=== PATIENT | male | born 1940 | race Caucasian/White ===

== ENCOUNTER 2017-01-24 15:55 | Emergency (ER) | payer MEDICARE ==
[2017-01-24] MEDS ORDERED: 0.9 % SODIUM CHLORIDE 1,000 ML IV ONE ×2 (16:13→16:28)
[2017-01-24] MEDS ORDERED: DILTIAZEM HCL 25 MG/ 5ML VIAL ONE (16:14)
[2017-01-24] MEDS: 0.9 % SODIUM CHLORIDE 1,000 ML IV ONE ×3 (16:20→17:10)
[2017-01-24] MEDS: DILTIAZEM HCL 25 MG/ 5ML VIAL IVP ONE (16:20)
[2017-01-24] MEDS ORDERED: DILTIAZEM HCL 125 MG in 0.9 % SODIUM CHLORIDE 100 ML IV STA (16:33)
[2017-01-24 16:49] LABS: BASOPHILS % 0.4 (0.0-1.5); EOSINOPHILS % 0.2 % (0.0-6.8); MEAN CORPUSCULAR HEMOGLOBIN 29.7 pg (28.0-34.0); MONOCYTES % 5.9 % (0.0-11.0); NEUTROPHILS # 11.9 # k/uL (1.4-7.7)
[2017-01-24] MEDS: DILTIAZEM HCL 125 MG in 0.9 % SODIUM CHLORIDE 100 ML IV STA (16:50)
[2017-01-24 16:58] LABS: eGFR (African) 42; eGFR (Non-African) 35
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
[2017-01-24 17:47] VITALS: BP 80/54
--- NOTE | 2017-01-24 18:57 | Diagnostic Imaging Report ---
JAZZY FERREIRA~ [facility] [address] [facility] [address] [place] [address]. [id number] ~ ~ ~ ~ Report Submission Date: Jan 24, 2017 4:57:04 PM CDT Patient ~ Study Name: KAREN BRITTON ~ Date: Jan 24, 2017 4:37:05 PM CDT ~ Modality Type: CR Gender: M ~ Description: CHEST : 42 ~ Institution: [facility] Physician: JAZZY FERREIRA ~ ~ ~ ~ HISTORY: 76-year-old male with atrial fibrillation and rapid ventricular response. COMPARISON: None available. TECHNIQUE: Single portable AP view of the chest was performed. FINDINGS: No pneumothorax, consolidative infiltrates, or pulmonary edema. ~ There is mild prominence of the central interstitial markings. ~The heart is enlarged. There is an old right clavicular fracture with metallic wire fixation. IMPRESSION: Cardiomegaly and mild prominence of the central pulmonary vasculature, suggestive of mild CHF. ~ Electronically signed on Jan 24, 2017 4:57:04 PM CDT by: Herbert BARROS
== END 2017-01-24 17:30 | disposition short-term general hospital (02) ==
LOC: ED 15:55
DX: I95.9 Hypotension, unspecified (principal); I21.4 Non-ST elevation (NSTEMI) myocardial infarction; I48.91 Unspecified atrial fibrillation
CPT/HCPCS: 71010; 80053; 83880; 84484; 85025; 93005; J3490; J7030; 96361; 96365; 99284; S1016